=== PATIENT | male | born 1995 | race Caucasian/White ===

== ENCOUNTER 2019-03-15 01:13 | Emergency (ER) | payer OTHER ==
[~2019-03-15] VITALS: Ht 167.6 cm; Wt 72.2 kg
[2019-03-15 01:21] VITALS: Ht 167.6 cm; Wt 72.2 kg
[2019-03-15] MEDS ORDERED: DIPHTH/TET/ACEL PERTUSS (ADULT) 0.5 ML VIAL IM* ONE (01:30)
[2019-03-15] MEDS ORDERED: SOD CHLORIDE 0.9% 100 ML ONE (01:33)
[2019-03-15] MEDS ORDERED: IOHEXOL 100 ML ONE (01:33)
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
[2019-03-15 02:48] VITALS: BP 115/57; PULSE 65; RESP 17
== END 2019-03-15 04:13 | disposition short-term general hospital (02) ==
LOC: E/R 01:13
DX: S31.010A Laceration without foreign body of lower back and pelvis without penetration into retroperitoneum, initial encounter (principal); X58.XXXA Exposure to other specified factors, initial encounter; Y92.9 Unspecified place or not applicable; Z23 Encounter for immunization
CPT/HCPCS: 36415; 75635; 80053; 80307; 85025; 85610; 85730; 90471; Q9967; Z7502; Z7610